=== PATIENT | female | born 1980 | race American Indian/Alaskan Native ===

== ENCOUNTER 2017-04-15 13:12 | Emergency (ER) | payer SELFPAY ==
[2017-04-15 13:19] VITALS: BP 131/89
[2017-04-15 15:00] LABS: Bacteria,Urine 2+ /HPF (Negative); Bilirubin,Urine NEG (Negative); Blood,Urine NEG (Negative); Ketones,Urine NEG (Negative); Leukocyte Esterase,Urine MOD (Negative); Mucus,Urine FEW /HPF; Nitrite,Urine NEG (Negative); Protein,Urine <15 mg/dL mg/dL (Negative); Urobilinogen,Urine < 2.0 mg/dL (<2.0)
--- NOTE | 2017-04-15 16:16 | Emergency Department Report ---
ED Female HPI - General Chief complaint: Urogenital-Female Stated complaint: FEMALE PROBLEM Time Seen by Provider: 04/15/17 15:46 Source: patient, family Mode of arrival: Ambulatory Limitations: No Limitations - History of Present Illness Initial comments: Patient reports that she needs STD treatment because she is having white vaginal discharge and vaginal burning with urination. She says she has sex with her boyfriend and they've been get together for a while yet her boyfriend is also here for renal discharge. They both have similar symptoms. Patient denies any abdominal pain or back pain. Denies any nausea or vomiting. She does report burning on urination, no urgency or frequency. Denies any fever or chills. No [id number] medication taken for vaginal burning. She said the discharge is yellowish and it does not have odor. She wants to be treated for STD rather than having testing done. She has 0 out of 10 pain at present. Patient says that she is in menopause she has not a period for 5 years. MD Complaint: vaginal discharge, dysuria, possible STD Onset/Timin -: days(s) Severity scale (0 -10): 0 Are you Now?: No (menopause) Associated Symptoms: vaginal discharge, dysuria. denies: vaginal bleeding, abdominal pain, nausea/vomiting, fever/chills, headaches, loss of appetite, hematuria, rash, seizure, shortness of breath, syncope, weakness - Related Data Sexually active: Yes Previous Rx's Medication Instructions Recorded Last Taken Type Nitrofurantoin [place]/M-Cryst 100 mg PO Q12HR #14 capsule 04/15/17 Unknown Rx [Macrobid CAP] Allergies Allergy/AdvReac Type Severity Reaction Status Date / Time No Known Allergies Allergy Unverified 04/15/17 13:20 ED Review of Systems ROS: Stated complaint: FEMALE PROBLEM Other details as noted in HPI Comment: All other systems reviewed and negative Constitutional: denies: chills, fever ENT: denies: throat pain Respiratory: no symptoms reported Cardiovascular: denies: chest pain, palpitations, edema, syncope Gastrointestinal: denies: abdominal pain, nausea, vomiting, diarrhea Genitourinary: dysuria, discharge. denies: urgency, frequency, hematuria, dyspareunia Musculoskeletal: denies: back pain, arthralgia, myalgia Skin: denies: rash Neurological: denies: headache, weakness, numbness, paresthesias, confusion, abnormal gait, vertigo ED Past Medical Hx - Past Medical History Previous Medical History?: Yes Hx Hypertension: Yes Hx Diabetes: Yes - Surgical History Past Surgical History?: Yes Hx Cholecystectomy: Yes Additional Surgical History: TUBAL LIGATION - Family History Family history: hypertension - Social History Smoking Status: Never Smoker Substance Use Type: None Other Social History: Single - Medications Home Medications: Home Medications Medication Instructions Recorded Confirmed Last Taken Type Nitrofurantoin [place]/M-Cryst 100 mg PO Q12HR #14 capsule 04/15/17 Unknown Rx [Macrobid CAP] ED Physical Exam - General Limitations: No Limitations General appearance: alert, in no apparent distress - Head Head exam: Present: atraumatic, normocephalic, normal inspection - Eye Eye exam: Present: normal appearance, PERRL, EOMI Pupils: Present: normal accommodation - ENT ENT exam: Present: normal exam, normal orophraynx, mucous membranes moist - Neck Neck exam: Present: normal inspection, full ROM. Absent: tenderness, lymphadenopathy - Respiratory Respiratory exam: Present: normal lung sounds bilaterally. Absent: respiratory distress, chest wall tenderness - Cardiovascular Cardiovascular Exam: Present: regular rate, normal rhythm, normal heart sounds - GI/Abdominal GI/Abdominal exam: Present: soft, normal bowel sounds. Absent: distended, tenderness, guarding, rebound, rigid - Extremities Exam Extremities exam: Present: normal inspection, full ROM, normal capillary refill. Absent: tenderness, pedal edema, joint swelling, calf tenderness - Back Exam Back exam: Present: normal inspection, full ROM. Absent: tenderness, CVA tenderness (R), CVA tenderness (L), muscle spasm, paraspinal tenderness, vertebral tenderness, rash noted - Neurological Exam Neurological exam: Present: alert, oriented X3, normal gait, reflexes normal. Absent: motor sensory deficit - Psychiatric Psychiatric exam: Present: normal affect, normal mood - Skin Skin exam: Present: warm, dry, intact, normal color. Absent: rash ED Course Vital Signs 04/15/17 13:16 Temperature 98.1 F Pulse Rate 78 Blood Pressure 131/89 O2 Sat by Pulse 100 Oximetry Respiration is 17 - Reevaluation(s) Reevaluation #1: 04/15/17 16:55 Patient given Rocephin 50 mg IM to cover gonorrhea, Zithromax 1 g by mouth to cover chlamydia and Flagyl 2 g by mouth to cover Trichomonas. Patient chose to be treated in emergency room rather than have an STD test done and [facility] for STD check. Patient also with urinary tract infection. 04/15/17 16:56 ED Medical Decision Making - Lab Data Lab Results 04/15/17 Range/Units 13:30 Urine Color Straw (Yellow) Urine Turbidity Clear (Clear) Urine pH 5.0 (5.0-7.0) Ur Specific [place] 1.006 (1.003-1.030) Urine Protein <15 mg/dl (Negative) mg/dL Urine Glucose (UA) Neg (Negative) mg/dL Urine Ketones Neg (Negative) mg/dL Urine Blood Neg (Negative) Urine Nitrite Neg (Negative) Urine Bilirubin Neg (Negative) Urine Urobilinogen < 2.0 (<2.0) mg/dL Ur Leukocyte Esterase Mod (Negative) Urine WBC (Auto) 5.0 (0.0-6.0) /HPF Urine RBC (Auto) 3.0 (0.0-6.0) /HPF U Epithel Cells (Auto) 2.0 (0-13.0) /HPF Urine Bacteria (Auto) 2+ (Negative) /HPF Urine Mucus Few /HPF Urine culture pending - Medical Decision Making MDM: ASSESS/plan: ED course:Pt here requesting STD treatment because she says she is having vaginal discharge and burning with urination. Patient denies any abdominal or back pain. She is here with her boyfriend who has the same symptoms of STD and they're both requesting treatment in the emergency room. I discussed the patient that her urinalysis was positive for bacterial infection of her bladder and urine culture sent and she will be called if needed. She was treated for STD to include gonorrhea, chlamydia and Trichomonas and placed on medication for urinary tract infection .discussed treatment plan and diagnosis with patient and she voiced understanding. Diagnostic/lab: Urinalysis positive for bacterial infection. Urine culture pending Medication: Patient given Rocephin 250 mg IM for gonorrhea, Zithromax 1 g by mouth for chlamydia and Flagyl 2 g by mouth for Trichomonas. Her significant other was treated for the same problem. Patient will be discharged home with prescription for Macrobid to cover urinary tract infection. Thus the patient that she needs to practice safe sex, refrain from having sex the next 2 weeks and go to health department in 7-10 days for STD testing. I also discussed with her that she needs to increase her fluid intake and refrain from drinking all call for the next 7 days as medication taken for Trichomonas can have adverse reaction would all call. Critical care attestation.: If time is entered above; I have spent that time in minutes in the direct care of this critically ill patient, excluding procedure time. ED Disposition Clinical Impression: Acute cystitis without hematuria, Concern about STD in female without diagnosis , Vaginal discharge, Dysuria Disposition: TO HOME OR SELFCARE Is pt being admited?: No Does the pt Need Aspirin: No Condition: Stable Instructions: Sexually Transmitted Diseases (ED), Safe Sex (ED), Urinary Tract Infection in Women (ED), Dysuria (ED) Additional Instructions: Increased fluid intake Since he do not have a primary care physician please follow up at [facility] Refrain from having sex for the next 2 weeks Please do not drink alcohol for the next 7 days due to negative interaction with medication given for STD treatment. These go to the health department in 7-10 days 5 STD testing done Antibiotic to treat urinary tract infection Prescriptions: Nitrofurantoin [place]/M-Cryst [Macrobid CAP] 100 mg PO Q12HR #14 capsule Referrals: [facility] [Outside] - 2-3 Days PRIMARY CARE, [Primary Care Provider] - 2-3 Days Forms: Work/School Release Form(ED)
[2017-04-15] MEDS ORDERED: FLAGYL PO ONE (16:17)
[2017-04-15] MEDS ORDERED: ROCEPHIN IM ONE (16:17)
[2017-04-15] MEDS ORDERED: ZITHROMAX PO ONE (16:17)
[2017-04-15] MEDS ORDERED: XYLOCAINE 1% MPF 5 mL INFILTRATI ONE (16:33)
[2017-04-15] MEDS ORDERED: XYLOCAINE 1% MPF 5 mL ONE (16:34)
== END 2017-04-15 17:25 | disposition home or self-care (01) ==
LOC: ED 13:12
DX: N30.00 Acute cystitis without hematuria (principal); N89.8 Other specified noninflammatory disorders of vagina; R30.0 Dysuria; I10 Essential (primary) hypertension; E11.9 Type 2 diabetes mellitus without complications
CPT/HCPCS: 81001; 87086; 96372; 99283; J0696